=== PATIENT | female | born 1995 ===

== ENCOUNTER 2018-01-06 08:45 | Inpatient (IN) | payer OTHER ==
[~2018-01-06] VITALS: Ht 152.4 cm; Wt 2.7 kg
[2018-01-09] MEDS ORDERED: CODE1TAB37 PO (09:18)
[2018-01-09] MEDS ORDERED: NAPR500T14 PO (09:18)
== END 2018-01-09 12:26 | DRG 766 ==
LOC: OB/GYN 08:45 → LDR 08:45 → O/R 13:27 → OB/GYN 15:08
PROVIDERS: Obstetrics & Gynecology
PROC: 4A1HXCZ Monitoring of Products of Conception, Cardiac Rate, External Approach (ICD-10-PCS; 2018-01-06)
PROC: 4A033R1 Measurement of Arterial Saturation, Peripheral, Percutaneous Approach (ICD-10-PCS; 2018-01-06)
PROC: 10D00Z1 Extraction of Products of Conception, Low, Open Approach (ICD-10-PCS; principal; 2018-01-06 11:00)
DX: O32.1XX0 Maternal care for breech presentation, not applicable or unspecified (principal); O33.8 Maternal care for disproportion of other origin; Z37.0 Single live birth; Z3A.37 37 weeks gestation of pregnancy

== ENCOUNTER 2021-02-09 11:32 | Emergency (ER) | payer OTHER ==
[~2021-02-09] VITALS: Ht 154.9 cm; Wt 54.0 kg
[~2021-02-09 11:32] MED LIST: CODE1TAB37 PO; NAPR500T14 PO
== END 2021-02-09 14:05 | disposition home or self-care (01) ==
LOC: ER 11:32
DX: R07.89 Other chest pain (principal)